=== PATIENT | male | born 1975 | race Caucasian/White ===

== ENCOUNTER 2016-07-22 07:04 | Emergency (ER) | payer BC ==
[~2016-07-22] VITALS: Ht 177.8 cm; Wt 78.8 kg
[2016-07-22 07:10] VITALS: TEMP 36.3; Ht 177.8 cm; Wt 78.8 kg
[2016-07-22] MEDS ORDERED: ONDANSETRON INJ 2 MG/ML 2 ML VIAL IV STA ×2 (07:37→09:54)
[2016-07-22] MEDS ORDERED: MoRPHine SULFATE 4 MG/ML 1 ML CARP\\VIAL IV ONE ×2 (07:45→10:00)
[2016-07-22] MEDS ORDERED: PANTOprazole INJ 40 MG in SYRINGE 0 ML IV ONE (07:45)
[2016-07-22] MEDS ORDERED: GI COCKTAIL PO ONE (07:45)
[2016-07-22] MEDS ORDERED: SODIUM CHLORIDE 0.9% 1000ML 1,000 ML IV ONE ×2 (07:45→10:00)
[2016-07-22 07:48] LABS: BASO % 0.3 %; BASO ABS # 0.02 K/uL (0-0.2); COMPLETE YES; EOS % 1.4 %; IG% 0.5 %; LYMPH % 24.2 %; LYMPH ABS # 1.52 K/uL (1.2-3.4); MEAN CELL VOLUME 90.1 fL (80-100); MEAN CORPUSCULAR HEMOGLOBIN 33.2 pg (25-34); MEAN CORPUSCULAR HGB CONC 36.9 g/dl (32-36); MEAN PLATELET VOLUME 9.9 fL (7.4-10.4); MONO % 7.2 %; NEUT % 66.4 %; PLATELET COUNT 244 K/uL (130-400); RED BLOOD COUNT 5.33 M/uL (4.7-6.1); WHITE BLOOD COUNT 6.29 K/uL (4.8-10.8)
[2016-07-22 08:02] LABS: BUN/CREATININE RATIO 15.6 (10-20); CALCIUM 9.2 mg/dl (8.5-10.1); CREATININE 1.1 mg/dl (0.60-1.40); POTASSIUM 3.5 mmol/L (3.5-5.1)
[2016-07-22] MEDS ORDERED: ALUMINUM/MAGNESIUM SUSP 30 ML UDC ONE (08:02)
[2016-07-22] MEDS ORDERED: LIDOCAINE HCL 2% VISC SOLN 20 ML UDC ONE (08:03)
[2016-07-22 08:05] LABS: ALB/GLOB RATIO 1.3 (0.9-2)
--- NOTE | 2016-07-22 09:00 | DIAGNOSTIC IMAGING REPORT ---
ABDOMEN 2VIEW W/PA CHEST RTN CLINICAL HISTORY: Epigastric abd pain pain COMPARISON STUDY: No previous studies for comparison. FINDINGS: The soft tissues, psoas shadows, renal outlines and intestinal gas pattern appear normal. There is no evidence for bowel obstruction. There is no evidence for free intraperitoneal air. No abnormal abdominal calcifications are seen. A frontal view of the chest was performed and is unremarkable. IMPRESSION: Normal study. Electronically signed by: Chet May M.D. 07/22/2016 8:58 AM Dictated Date/Time: 07/22/2016 8:57 AM
--- NOTE | 2016-07-22 09:06 | DIAGNOSTIC IMAGING REPORT ---
Right upper quadrant ultrasound GALLBLADDER-ABD LIMITED CLINICAL HISTORY: Epigastric abd pain pain. Nausea. TECHNIQUE: Ultrasound COMPARISON STUDY: None FINDINGS: 2. Small gallstones. No evidence for gallbladder wall thickening. Common bile duct 3 mm. Liver is uniform. 2. Small left hepatic lobe cyst measuring 1.2 cm. Pancreas and right kidney are unremarkable. IMPRESSION: 1. Several small gallstones. 2. Normal caliber bile ducts. 3. 2. Small left hepatic lobe cyst. Electronically signed by: Chet May M.D. 07/22/2016 9:04 AM Dictated Date/Time: 07/22/2016 9:02 AM
--- NOTE | 2016-07-22 10:55 | DIAGNOSTIC IMAGING REPORT ---
ABDOMEN AND PELVIS CT WITHOUT CONTRAST CT DOSE: 329.35 mGy.cm HISTORY: Pain Epigastric/Left sided abd pain TECHNIQUE: Multiaxial CT images of the abdomen and pelvis were performed without contrast. COMPARISON STUDY: None. FINDINGS: The lung bases are clear. The unenhanced liver, spleen, gallbladder, pancreas, kidneys, and adrenal glands are within normal limits. No bowel wall thickening or obstruction. The pelvic organs are unremarkable. No suspicious lytic or blastic osseous lesions. IMPRESSION: No significant abnormality identified within the abdomen or pelvis. Electronically signed by: Chet May M.D. 07/22/2016 10:53 AM Dictated Date/Time: 07/22/2016 10:49 AM
[2016-07-22] MEDS ORDERED: ONDA4TAB10 SL (11:15)
[2016-07-22] MEDS ORDERED: HYDR-5688 PO (11:15)
[2016-07-22 11:40] VITALS: BP 101/53; PULSE 69; O2SAT 98
--- NOTE | 2016-07-22 16:15 | EMERGENCY ROOM VISIT NOTE ---
History First contact with patient: 07:29 Chief Complaint: ABDOMINAL PAIN Stated Complaint: UPPER ABDOMINAL PAIN - CENTER Nursing Triage Summary: Pt presents with epigastric pain since 0550, n/v/d. States nausea now resolved. Emesis x 1. History of Present Illness The patient is a 40 year old male who presents to the Emergency Room with complaints of epigastric abdominal pain for the past 90 minutes. The patient states that he woke up with his discomfort and had one episode of vomiting. He states the vomiting did resolve his nausea. His discomfort is directly underneath his ribs and does not radiate. The patient states that he has had intermittent episodes of this in the past. He did have some diarrhea earlier, but this is also resolved. No recent travel history or antibiotic use. The patient considers himself usually healthy and rates his discomfort a 7/10. Review of Systems More than 10 systems were reviewed and otherwise negative with the exception of history of present illness. Past Medical/Surgical History No chronic medical disease Family History No pertinent family history Social History Smoking Status: Never Smoker Housing Status: lives with family Current/Historical Medications Scheduled Ondasetron Odt (Zofran Odt), 4 MG SL Q6H Scheduled PRN Hydrocodone/Acetaminophen 5MG/325MG ([place] 5MG/325MG), 1-2 TABLET PO Q6 PRN for Pain Allergies Coded Allergies: No Known Allergies (Unverified , 07/22/16) Physical Exam Vital Signs Date Time Temp Pulse Resp B/P Pulse Ox O2 Delivery O2 Flow Rate FiO2 07/22/16 11:40 69 18 101/53 98 07/22/16 11:13 56 121/62 97 07/22/16 09:20 59 16 136/77 95 Room Air 07/22/16 08:22 58 16 111/68 98 Room Air 07/22/16 08:19 67 07/22/16 07:10 36.3 69 20 142/88 100 Room Air Pain Rating (0-10): 3.0 Physical Exam VITALS: Vitals are noted on the nurse's note and reviewed by myself. Vital signs stable. GENERAL: Well-developed, well-nourished, white male, who is in no acute distress and resting comfortably. Patient is cooperative with the examination. HEAD: Normocephalic atraumatic. HEART: Regular rate and rhythm without murmurs gallops or rubs. LUNGS: Clear to auscultation bilaterally without wheezes, rales or rhonchi. No retractions or accessory muscle use. ABDOMEN: Positive normal bowel sounds x 4. Soft with positive epigastric tenderness on palpation. No rebound or guarding. No lower abdominal tenderness. No CVA tenderness. MUSCULOSKELETAL: No muscle atrophy, erythema, or edema noted. Full range of motion without joint tenderness in all extremities. Medical Decision & Procedures ER Provider Diagnostic Interpretation: ABDOMEN 2VIEW W/PA CHEST RTN CLINICAL HISTORY: Epigastric abd pain pain COMPARISON STUDY: No previous studies for comparison. FINDINGS: The soft tissues, psoas shadows, renal outlines and intestinal gas pattern appear normal. There is no evidence for bowel obstruction. There is no evidence for free intraperitoneal air. No abnormal abdominal calcifications are seen. A frontal view of the chest was performed and is unremarkable. IMPRESSION: Normal study. Right upper quadrant ultrasound GALLBLADDER-ABD LIMITED CLINICAL HISTORY: Epigastric abd pain pain. Nausea. TECHNIQUE: Ultrasound COMPARISON STUDY: None FINDINGS: 2. Small gallstones. No evidence for gallbladder wall thickening. Common bile duct 3 mm. Liver is uniform. 2. Small left hepatic lobe cyst measuring 1.2 cm. Pancreas and right kidney are unremarkable. IMPRESSION: 1. Several small gallstones. 2. Normal caliber bile ducts. 3. 2. Small left hepatic lobe cyst. ABDOMEN AND PELVIS CT WITHOUT CONTRAST CT DOSE: 329.35 mGy.cm HISTORY: Pain Epigastric/Left sided abd pain TECHNIQUE: Multiaxial CT images of the abdomen and pelvis were performed without contrast. COMPARISON STUDY: None. FINDINGS: The lung bases are clear. The unenhanced liver, spleen, gallbladder, pancreas, kidneys, and adrenal glands are within normal limits. No bowel wall thickening or obstruction. The pelvic organs are unremarkable. No suspicious lytic or blastic osseous lesions. IMPRESSION: No significant abnormality identified within the abdomen or pelvis. Laboratory Results 07/22/16 06:20 Red Blood Count 5.33, Mean Corpuscular Volume 90.1, Mean Corpuscular Hemoglobin 33.2, Mean Corpuscular Hemoglobin Concent 36.9, Mean Platelet Volume 9.9, Neutrophils (%) (Auto) 66.4, Lymphocytes (%) (Auto) 24.2, Monocytes (%) (Auto) 7.2, Eosinophils (%) (Auto) 1.4, Basophils (%) (Auto) 0.3, Neutrophils # (Auto) 4.18, Lymphocytes # (Auto) 1.52, Monocytes # (Auto) 0.45, Eosinophils # (Auto) 0.09, Basophils # (Auto) 0.02 07/22/16 06:20 Test 07/22/16 06:20 07/22/16 08:26 White Blood Count 6.29 K/uL (4.8-10.8) Red Blood Count 5.33 M/uL (4.7-6.1) Hemoglobin 17.7 g/dL (14.0-18.0) Hematocrit 48.0 % (42-52) Mean Corpuscular Volume 90.1 fL (80-100) Mean Corpuscular Hemoglobin 33.2 pg (25-34) Mean Corpuscular Hemoglobin Concent 36.9 g/dl (32-36) Platelet Count 244 K/uL (130-400) Mean Platelet Volume 9.9 fL (7.4-10.4) Neutrophils (%) (Auto) 66.4 % Lymphocytes (%) (Auto) 24.2 % Monocytes (%) (Auto) 7.2 % Eosinophils (%) (Auto) 1.4 % Basophils (%) (Auto) 0.3 % Neutrophils # (Auto) 4.18 K/uL (1.4-6.5) Lymphocytes # (Auto) 1.52 K/uL (1.2-3.4) Monocytes # (Auto) 0.45 K/uL (0.11-0.59) Eosinophils # (Auto) 0.09 K/uL (0-0.5) Basophils # (Auto) 0.02 K/uL (0-0.2) RDW Standard Deviation 42.1 fL (36.4-46.3) RDW Coefficient of Variation 12.8 % (11.5-14.5) Immature Granulocyte % (Auto) 0.5 % Immature Granulocyte # (Auto) 0.03 K/uL (0.00-0.02) Anion Gap 7.0 mmol/L (3-11) Est Creatinine Clear Calc Drug Dose 90.3 ml/min Estimated GFR () 95.5 Estimated GFR (Non- 82.4 BUN/Creatinine Ratio 15.6 (10-20) Calcium Level 9.2 mg/dl (8.5-10.1) Total Bilirubin 1.5 mg/dl (0.2-1) Aspartate Amino Transf (AST/SGOT) 13 U/L (15-37) Alanine Aminotransferase (ALT/SGPT) 30 U/L (12-78) Alkaline Phosphatase 65 U/L (45-117) Total Protein 7.6 gm/dl (6.4-8.2) Albumin 4.3 gm/dl (3.4-5.0) Globulin 3.3 gm/dl (2.5-4.0) Albumin/Globulin Ratio 1.3 (0.9-2) Lipase 158 U/L (73-393) Bedside Troponin I 0.000 ng/ml (0-0.045) Medications Administered Medications (Trade) Dose Ordered Sig/Tonya Route Start Time Stop Time Status Last Admin Dose Admin Morphine Sulfate 4 mg 4 mg NOW ONCE IV 07/22/16 07:45 07/22/16 07:46 DC 07/22/16 08:03 4 MG Sodium Chloride (Nss 1000ml) 1,000 ml @ 999 mls/hr Q1H1M ONCE IV 07/22/16 07:45 07/22/16 08:45 DC 07/22/16 08:08 999 MLS/HR Ondansetron HCl (Zofran Inj) 4 mg NOW STAT IV 07/22/16 07:37 07/22/16 07:39 DC 07/22/16 08:02 4 MG Miscellaneous Medication 24 ml 24 ml NOW ONCE PO 07/22/16 07:45 07/22/16 07:46 DC 07/22/16 08:24 24 ML Pantoprazole Sodium/Syringe (Protonix Inj/ Syringe) 10 ml @ 5 mls/min NOW ONCE IV 07/22/16 07:45 07/22/16 07:46 DC 07/22/16 08:07 5 MLS/MIN Al Hydroxide/Mg Hydroxide (Maalox Susp) 30 ml STK-MED ONCE .ROUTE 07/22/16 08:02 07/22/16 08:03 DC 07/22/16 08:07 30 ML Lidocaine HCl (Viscous Lidocaine 2% Soln) 20 ml STK-MED ONCE .ROUTE 07/22/16 08:03 07/22/16 08:04 DC 07/22/16 08:08 20 ML Morphine Sulfate (MoRPHine SULFATE INJ) 4 mg NOW ONCE IV 07/22/16 10:00 07/22/16 10:01 DC 07/22/16 10:06 4 MG Ondansetron HCl 4 mg 4 mg NOW STAT IV 07/22/16 09:54 07/22/16 09:56 DC 07/22/16 10:06 4 MG Sodium Chloride (Nss 1000ml) 1,000 ml @ 999 mls/hr Q1H1M ONCE IV 07/22/16 10:00 07/22/16 11:00 DC 07/22/16 10:07 999 MLS/HR ED Course Physical exam and history were performed. Nursing notes and EMR were reviewed. Patient appears to have epigastric abdominal pain with nausea and vomiting this morning. On examination he does have some palpable epigastric tenderness. IV access was established and labs were obtained. The patient was hydrated through his IV and given IV morphine and IV Zofran. He was also given a GI cocktail and IV Protonix. X-ray and ultrasound were performed. The patient's blood work is as above and was reviewed. He does not have significantly elevated white blood cell count or gross anemia, bandemia, or significant electrolyte imbalance. Lipase and transaminases are nondiagnostic. X-ray does not show acute finding such as free air or obstructive process. Ultrasound does show some gallstones but no acute cholecystitis. On reevaluation the patient states that his abdominal pain in the epigastrium significant improvement, but now he has some left-sided abdominal pain which was different from before. The patient was reexamined and his abdomen remained soft without significant findings in the left side of his abdomen. I discussed options of care with the patient, and ultimately we did elect to perform a CT scan. The CT scan does not show evidence of acute intra-abdominal process. Overall the patient does appear stable for discharge home. He does not appear to have acute surgical abdominal process. His symptoms certainly could be gastritis or foodborne illness. He may also have GERD. The patient will be given a short course of Vicodin as well as a short amount of Zofran. I recommended that he follow with his PCP in the next few days for recheck. He was certainly invited back to the ER with any new, worsening, or concerning symptoms. The patient was pleased with this plan and voiced understanding. He rated his discomfort a 3/10 at the time of departure. The chart was completed utilizing Dragon Speech Voice Recognition Software. Grammatical errors, random word insertions, pronoun errors, and incomplete sentences are an occasional consequence of this system due to software limitations, ambient noise, and hardware issues. Any formal questions or concerns about the content, text, or information contained within the body of this dictation should be directly addressed to the provider for clarification. . Medical Decision Differential diagnosis: Etiologies such as appendicitis, diverticulitis, PUD, biliary pathology, UTI, pancreatitis, obstruction, mesenteric ischemia, aortic pathology, infections, inflammatory bowel disease, renal colic, as well as others were entertained. Impression Primary Impression: Epigastric abdominal pain Departure Information Dispostion Home / Self-Care Condition GOOD Prescriptions Ondasetron Odt (ZOFRAN ODT) 4 Mg Tab 4 MG SL Q6H for Nausea, #12 TAB Prov: Sandip Noriega PA-C 07/22/16 Hydrocodone/Acetaminophen 5MG/325MG ([place] 5MG/325MG) Tab 1-2 TABLET PO Q6 Y for Pain, #15 TAB For Initial Treatment Prov: Sandip Noriega PA-C 07/22/16 Forms Call Back Authorization, HOME CARE DOCUMENTATION FORM, Work Instructions, Return To Work: 2 days IMPORTANT VISIT INFORMATION Patient Instructions My [facility] Additional Instructions You were seen and evaluated today on an emergency basis only. This is not a substitute for, or an effort to provide, complete comprehensive medical care. It is not possible to recognize and treat all injuries or illnesses in a single emergency department visit. For this reason it is recommended that you followup with your primary care physician in the next 2-3 days for recheck of your condition. [place] (hydrocodone/acetaminophen) 5/325 mg ONE or TWO every 6 hours as needed for worsening breakthrough pain. Do not drink or drive on [place]. This medication will likely make you tired. Do not take [place] and Tylenol at the same time as both contain acetaminophen. [place] may cause constipation. You may wish to take an [id number] stool softener like Colace if this occurs. Zofran 1 tablet every 6 hrs as needed for nausea. You are welcome to return to the emergency department anytime with new, worsening, or concerning symptoms. Work Instructions Return To Work: 2 days
== END 2016-07-22 11:43 | disposition home or self-care (01) ==
LOC: C.EDB 07:06 → C.EDA 11:43
DX: R10.13 Epigastric pain (principal); R11.2 Nausea with vomiting, unspecified

== ENCOUNTER → 2016-10-30 | Outpatient (CLI) | payer OTHER, BC ==
[~2016-10-30] MED LIST: HYDR-5688 PO; ONDA4TAB10 SL
--- NOTE | 2016-10-30 08:44 | DIAGNOSTIC IMAGING REPORT ---
RIGHT HAND MIN 3 VIEWS ROUTINE CLINICAL HISTORY: 40 years-old Male presenting with RIGHT HAND 5TH DIGIT Right. TECHNIQUE: Frontal, oblique, and lateral views of the right hand were obtained. COMPARISON: Correlation made to plain radiographs of the right wrist from 12/27/2013. FINDINGS: No acute fracture or malalignment. Apparent radiolucency in the distal scaphoid may represent cystic change related to degeneration or be artifactual. Soft tissues grossly normal. Previously noted well-corticated ossicle at the dorsal base of the fifth metacarpal unchanged in appearance. No significant degenerative change. IMPRESSION: No acute osseous injury of the right hand. Specifically, the fifth finger is normal appearing. Electronically signed by: Waqas Gutierrez M.D. 10/30/2016 8:43 AM Dictated Date/Time: 10/30/2016 8:39 AM
== END | disposition home or self-care (01) ==
LOC: C.RAD1850 08:21
PROVIDERS: ATTEND Nurse Practitioner Family
DX: S60.051A Contusion of right little finger without damage to nail, initial encounter (principal); W23.0XXA Caught, crushed, jammed, or pinched between moving objects, initial encounter; Y99.0 Civilian activity done for income or pay

== ENCOUNTER → 2016-11-06 | Outpatient (CLI) | payer OTHER, BC | END | disposition home or self-care (01) | LOC: C.PATH 17:08 | PROVIDERS: ATTEND Urology | DX: Z30.2 Encounter for sterilization (principal) ==

== ENCOUNTER 2017-04-23 18:16 | Inpatient (IN) | payer BC, OTHER ==
[~2017-04-23] VITALS: Ht 177.8 cm; Wt 83.0 kg
[2017-04-23] MEDS ORDERED: SIME80CH PO (19:30)
[2017-04-23] MEDS ORDERED: BISM262T3 PO (19:30)
[2017-04-23] MEDS ORDERED: ONDANSETRON INJ 2 MG/ML 2 ML VIAL IV STA (19:38)
[2017-04-23] MEDS ORDERED: SODIUM CHLORIDE 0.9% 1000ML 1,000 ML IV STA (19:39)
[2017-04-23 19:41] LABS: BASO % 0.2 %; BASO ABS # 0.02 K/uL (0-0.2); EOS % 0.7 %; EOS ABS # 0.08 K/uL (0-0.5); HEMATOCRIT 45.9 % (42-52); IG# 0.09 K/uL (0.00-0.02); LYMPH ABS # 1.11 K/uL (1.2-3.4); MEAN CELL VOLUME 91.8 fL (80-100); MEAN PLATELET VOLUME 10.1 fL (7.4-10.4); MONO % 5.7 %; MONO ABS # 0.63 K/uL (0.11-0.59); NEUT % 82.6 %; NEUT ABS # 9.17 K/uL (1.4-6.5); PLATELET COUNT 213 K/uL (130-400); RED CELL DISTRIBUTION WIDTH CV 12.4 % (11.5-14.5); RED CELL DISTRIBUTION WIDTH SD 41.6 fL (36.4-46.3)
[2017-04-23] MEDS: HYDROmorphone INJ 1 MG/ML SYR IV PRN ×2 (19:47→20:10)
[2017-04-23 20:01] LABS: ALBUMIN 4.3 gm/dl (3.4-5.0); CALCIUM 8.6 mg/dl (8.5-10.1); CREATININE 1.01 mg/dl (0.60-1.40); POTASSIUM 3.3 mmol/L (3.5-5.1)
[2017-04-23 20:04] LABS: TOTAL PROTEIN 7.4 gm/dl (6.4-8.2)
--- NOTE | 2017-04-23 21:14 | DIAGNOSTIC IMAGING REPORT ---
ULTRASOUND RIGHT UPPER QUADRANT ABDOMEN CLINICAL HISTORY: Upper abdominal pain. COMPARISON STUDY: Abdominal CT dated 07/22/2016. TECHNIQUE: Real-time, grayscale, and color flow sonography of the right upper quadrant of the abdomen was performed. Images are reviewed in the transverse and longitudinal planes. FINDINGS: Liver: The liver is normal in size and echotexture. There is no intrahepatic biliary ductal dilatation. The main portal vein is patent. An 8 mm echogenic lesion in the left hepatic lobe is typical in appearance for a small hemangioma. A subcentimeter cyst is also seen in the left lobe. Gallbladder: The gallbladder is distended. There are shadowing gallstones and biliary sludge. The gallbladder wall is thickened measuring up to 5 mm. No pericholecystic fluid is seen. A sonographic Diaz's sign is equivocal as the patient received analgesia. A 5 mm gallbladder polyp is incidentally noted fundus. The common bile duct measures up to 0.3 cm in diameter. Pancreas: Visualized portions of the pancreatic head and body are normal in appearance. The splenic vein is patent. Right kidney: Survey images of the right kidney demonstrate normal size and echotexture. There is no hydronephrosis. Ascites: None. IMPRESSION: 1. Cholelithiasis and biliary sludge. The gallbladder is distended and thick-walled. Findings are concerning for acute cholecystitis. Surgical consultation is advised. If clinically warranted a nuclear hepatobiliary scan could be considered for further assessment. 2. There is no intra or extrahepatic biliary ductal dilatation. 3. Additional findings as above. Electronically signed by: Raudel Malone M.D. 04/23/2017 9:13 PM Dictated Date/Time: 04/23/2017 9:10 PM
[2017-04-23] MEDS ORDERED: CEFOXITIN 2000MG/60 ML D5W IV STA (21:29)
--- NOTE | 2017-04-23 21:40 | DIAGNOSTIC IMAGING REPORT ---
SINGLE VIEW CHEST CLINICAL HISTORY: Right upper quadrant abdominal pain. FINDINGS: An AP, portable, upright chest radiograph is compared to study dated 07/22/2016. The examination is degraded by portable technique and patient rotation. The cardiomediastinal silhouette is unremarkable. The lungs and pleural spaces are clear. No pneumothorax is seen. The bony thorax is grossly intact. IMPRESSION: No active disease in the chest. Electronically signed by: Raudel Malone M.D. 04/23/2017 9:39 PM Dictated Date/Time: 04/23/2017 9:39 PM
--- NOTE | 2017-04-23 22:16 | History and Physical ---
History & Physical Date & Time of Service: Apr 23, 2017 at 22:10 Chief Complaint: Severte Upper Stomach Pain Primary Care Physician: Seferino Rowell MD History of Present Illness Source: patient The patient is a 41 year old male who presents to the Emergency Room with complaints of worsening upper abdominal pain that began this afternoon. The pain radiates to his back and he has been nauseated. He had a similar episode in July of 2016 when he was diagnosed with epigastric abdominal pain. The patient denies LOC, headache, fevers, chills, diaphoresis, visual changes, neck pain, chest pain, breathing difficulties, vomiting, melena, hematochezia, urinary symptoms, numbness, weakness, lymphadenopathy, rash, or other complaints. An ultrasound shows stones and signs of acute cholecystitis. Past Medical/Surgical History PMHx -negative PSHx -negative Family History Cancer Cancer Social History Smoking Status: Never Smoker Alcohol Use: socially Drug Use: none Marital Status: Housing status: lives with family Occupational Status: employed Allergies Coded Allergies: Naproxen (Verified Allergy, Unknown, Head noise and passed out, 04/23/17) Home Medications Scheduled PRN Bismuth Subsalicylate (Pepto Bismol Chew Tab), 262 MG PO UD PRN for GI Upset Simethicone (Gas-X), 80 MG PO UD PRN for Gas or Constipation Review of Systems Constitutional: No fever, No chills, No sweats Eyes: No worsening of vision, No redness ENT: No problem reported Respiratory: No cough, No sputum, No wheezing, No shortness of breath, No dyspnea on exertion Cardiovascular: No chest pain, No edema, No palpitations Abdomen: + pain, + nausea, No vomiting, No diarrhea, No constipation, No GI bleeding Musculoskeletal: No joint pain, No muscle pain, No swelling Genitourinary - Male: No hematuria, No dysuria Neurologic: No memory loss, No paralysis, No numbness/tingling, No vertigo Psychiatric: No depression symptoms, No anxiety Endocrine: No fatigue, No excessive thirst, No excessive urination Hematologic / Lymphatic: No abnormal bleeding/bruising, No clotting problems, No swollen lymph nodes, No night sweats Integumentary: No rash, No new/changing skin lesions, No bleeding Allergic / Immunologic: No environmental allergies, No seasonal allergies Physical Exam Vital Signs Date Time Temp Pulse Resp B/P (MAP) Pulse Ox O2 Delivery O2 Flow Rate FiO2 04/23/17 21:25 71 20 116/73 96 Room Air 04/23/17 20:10 98 20 133/95 98 Room Air 04/23/17 18:18 36.3 68 20 141/89 99 General Appearance: WD/WN, no apparent distress Head: normocephalic, atraumatic Eyes: normal inspection, PERRL, EOMI, sclerae normal ENT: normal ENT inspection Neck: supple, no adenopathy, trachea midline Respiratory/Chest: chest non-tender, lungs clear Cardiovascular: regular rate, rhythm, no edema, no gallop, no murmur Abdomen/GI: normal bowel sounds, soft, no pulsatile mass, + tenderness Genitourinary - Male: normal male genitalia Back: no CVA tenderness, normal range of motion Extremities/Musculoskelatal: normal inspection, no calf tenderness, non-tender Neurologic/Psych: no motor/sensory deficits, alert, normal mood/affect, oriented x 3 Skin: normal color, warm/dry, no rash Lymphatic: no adenopathy Diagnostics Laboratory Results Results Past 24 Hours Test 04/23/17 19:08 04/23/17 20:00 Range/Units White Blood Count 11.10 4.8-10.8 K/uL Red Blood Count 5.00 4.7-6.1 M/uL Hemoglobin 17.0 14.0-18.0 g/dL Hematocrit 45.9 42-52 % Mean Corpuscular Volume 91.8 80-100 fL Mean Corpuscular Hemoglobin 34.0 25-34 pg Mean Corpuscular Hemoglobin Concent 37.0 32-36 g/dl Platelet Count 213 130-400 K/uL Mean Platelet Volume 10.1 7.4-10.4 fL Neutrophils (%) (Auto) 82.6 % Lymphocytes (%) (Auto) 10.0 % Monocytes (%) (Auto) 5.7 % Eosinophils (%) (Auto) 0.7 % Basophils (%) (Auto) 0.2 % Neutrophils # (Auto) 9.17 1.4-6.5 K/uL Lymphocytes # (Auto) 1.11 1.2-3.4 K/uL Monocytes # (Auto) 0.63 0.11-0.59 K/uL Eosinophils # (Auto) 0.08 0-0.5 K/uL Basophils # (Auto) 0.02 0-0.2 K/uL RDW Standard Deviation 41.6 36.4-46.3 fL RDW Coefficient of Variation 12.4 11.5-14.5 % Immature Granulocyte % (Auto) 0.8 % Immature Granulocyte # (Auto) 0.09 0.00-0.02 K/uL Sodium Level 140 136-145 mmol/L Potassium Level 3.3 3.5-5.1 mmol/L Chloride Level 106 98-107 mmol/L Carbon Dioxide Level 28 21-32 mmol/L Anion Gap 6.0 3-11 mmol/L Blood Urea Nitrogen 18 7-18 mg/dl Creatinine 1.01 0.60-1.40 mg/dl Est Creatinine Clear Calc Drug Dose 97.4 ml/min Estimated GFR () 105.1 Estimated GFR (Non- 90.7 BUN/Creatinine Ratio 18.3 10-20 Random Glucose 93 70-99 mg/dl Calcium Level 8.6 8.5-10.1 mg/dl Total Bilirubin 1.3 0.2-1 mg/dl Direct Bilirubin 0.2 0-0.2 mg/dl Aspartate Amino Transf (AST/SGOT) 19 15-37 U/L Alanine Aminotransferase (ALT/SGPT) 34 12-78 U/L Alkaline Phosphatase 64 45-117 U/L Total Protein 7.4 6.4-8.2 gm/dl Albumin 4.3 3.4-5.0 gm/dl Lipase 150 73-393 U/L Urine Color YELLOW Urine Appearance CLOUDY CLEAR Urine pH 7.5 4.5-7.5 Urine Specific Erin 1.023 1.000-1.030 Urine Protein NEG NEG Urine Glucose (UA) NEG NEG Urine Ketones TRACE NEG Urine Occult Blood NEG NEG Urine Nitrite NEG NEG Urine Bilirubin NEG NEG Urine Urobilinogen NEG NEG Urine Leukocyte Esterase NEG NEG Urine WBC (Auto) 0 0-5 /hpf Urine RBC (Auto) 0-4 0-4 /hpf Urine Hyaline Casts (Auto) 0 0-5 /lpf Urine Epithelial Cells (Auto) 0-5 0-5 /lpf Urine Bacteria (Auto) NEG NEG Diagnostic Radiology ULTRASOUND RIGHT UPPER QUADRANT ABDOMEN CLINICAL HISTORY: Upper abdominal pain. COMPARISON STUDY: Abdominal CT dated 07/22/2016. TECHNIQUE: Real-time, grayscale, and color flow sonography of the right upper quadrant of the abdomen was performed. Images are reviewed in the transverse and longitudinal planes. FINDINGS: Liver: The liver is normal in size and echotexture. There is no intrahepatic biliary ductal dilatation. The main portal vein is patent. An 8 mm echogenic lesion in the left hepatic lobe is typical in appearance for a small hemangioma. A subcentimeter cyst is also seen in the left lobe. Gallbladder: The gallbladder is distended. There are shadowing gallstones and biliary sludge. The gallbladder wall is thickened measuring up to 5 mm. No pericholecystic fluid is seen. A sonographic Diaz's sign is equivocal as the patient received analgesia. A 5 mm gallbladder polyp is incidentally noted fundus. The common bile duct measures up to 0.3 cm in diameter. Pancreas: Visualized portions of the pancreatic head and body are normal in appearance. The splenic vein is patent. Right kidney: Survey images of the right kidney demonstrate normal size and echotexture. There is no hydronephrosis. Ascites: None. IMPRESSION: 1. Cholelithiasis and biliary sludge. The gallbladder is distended and thick-walled. Findings are concerning for acute cholecystitis. Surgical consultation is advised. If clinically warranted a nuclear hepatobiliary scan could be considered for further assessment. 2. There is no intra or extrahepatic biliary ductal dilatation. 3. Additional findings as above. Impression Assessment and Plan Acute cholecystitis -IVF IV abx -to OR tomorrow for lap nini ASA Classification: ASA Class II Level of Care Med/Surg Advanced Directives Existing Advance Directive: No Existing Living Will: No Existing Power of Deposition Operator: No Existing Health Care Proxy: No Resuscitation Status FULL RESUSCITATION VTE Prophylaxis VTE Risk Assessment Done? Y/N: Yes Risk Level: Low Given or contraindicated: SCD's Social Service Consult None Apply
[2017-04-23] MEDS ORDERED: ALUMINUM/MAGNESIUM/SIMETH (MAALOX MAX) 30 ML UDC PO PRN (22:30)
[2017-04-23] MEDS ORDERED: ACETAMINOPHEN 325 MG TAB PO PRN (22:30)
[2017-04-23] MEDS ORDERED: ONDANSETRON INJ 2 MG/ML 2 ML VIAL IV PRN (22:30)
[2017-04-23] MEDS ORDERED: MoRPHine SULFATE 4 MG/ML 1 ML CARP\\VIAL IV PRN (22:30)
--- NOTE | 2017-04-23 23:11 | EMERGENCY ROOM VISIT NOTE ---
History Report prepared by Gian: Que Barber Under the Supervision of: Dr. Jonathan Ramirez M.D. First contact with patient: 19:04 Chief Complaint: ABDOMINAL PAIN Stated Complaint: SEVERTE UPPER STOMACH PAIN Nursing Triage Summary: c/o upper abd pain and back pain with nausea that started at 230pm today History of Present Illness The patient is a 41 year old male who presents to the Emergency Room with complaints of worsening upper abdominal pain that began at 1430, 5 hours prior to arrival. The patient states that his pain significantly worsened at 1600. He describes his current pain as "severe." The patient notes that he also has pain across the middle of his back, and that he is nauseous. He believes that his nausea is secondary to the pain. He had a similar episode in July of 2016 when he was diagnosed with epigastric abdominal pain. The patient denies LOC, headache, fevers, chills, diaphoresis, visual changes, neck pain, chest pain, breathing difficulties, vomiting, melena, hematochezia, urinary symptoms, numbness, weakness, lymphadenopathy, rash, or other complaints. 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 A total of ten systems were reviewed and were otherwise negative. Past Medical & Surgical Medical Problems: (1) Acute cholecystitis Patient denies any medical/surgical history. Family History Cancer Social History Smoking Status: Never Smoker Marital Status: Housing Status: lives with family Current/Historical Medications Scheduled PRN Bismuth Subsalicylate (Pepto Bismol Chew Tab), 262 MG PO UD PRN for GI Upset Simethicone (Gas-X), 80 MG PO UD PRN for Gas or Constipation Allergies Coded Allergies: Naproxen (Verified Allergy, Unknown, Head noise and passed out, 04/23/17) Physical Exam Vital Signs Date Time Temp Pulse Resp B/P (MAP) Pulse Ox O2 Delivery O2 Flow Rate FiO2 04/23/17 22:53 72 20 135/72 94 Room Air 04/23/17 21:25 71 20 116/73 96 Room Air 04/23/17 20:10 98 20 133/95 98 Room Air 04/23/17 18:18 36.3 68 20 141/89 99 Physical Exam GENERAL: Awake, alert, very uncomfortable appearing, moderate distress. HENT: Normocephalic, atraumatic. Oropharynx unremarkable. EYES: Normal conjunctiva. Sclera non-icteric. NECK: Supple. No nuchal rigidity. FROM. No JVD. RESPIRATORY: Clear to auscultation. CARDIAC: Regular rate, normal rhythm. Extremities warm and well perfused. Pulses equal. ABDOMEN: Soft, non-distended. Severe RUQ tenderness to palpation. No rebound or guarding. No masses. RECTAL: Deferred. MUSCULOSKELETAL: Chest examination reveals no tenderness. The back is symmetrical on inspection without obvious abnormality. There is CVA tenderness to palpation. No joint edema. LOWER EXTREMITIES: Calves are equal size bilaterally and non-tender. No edema. No discoloration. NEURO: Normal sensorium. No sensory or motor deficits noted. SKIN: No rash or jaundice noted. Medical Decision & Procedures ER Provider Diagnostic Interpretation: Imaging studies: Chest x-ray. Findings: A chest x-ray was performed and revealed no pneumothorax, effusion, infiltrate, pulmonary edema, free air under the diaphragm, or wide mediastinum. Impression: No acute disease. Gallbladder ultrasound revealed thickening, sludge, stones, and this was concerning for acute cholecystitis. Laboratory Results 04/23/17 19:08 Red Blood Count 5.00, Mean Corpuscular Volume 91.8, Mean Corpuscular Hemoglobin 34.0, Mean Corpuscular Hemoglobin Concent 37.0, Mean Platelet Volume 10.1, Neutrophils (%) (Auto) 82.6, Lymphocytes (%) (Auto) 10.0, Monocytes (%) (Auto) 5.7, Eosinophils (%) (Auto) 0.7, Basophils (%) (Auto) 0.2, Neutrophils # (Auto) 9.17, Lymphocytes # (Auto) 1.11, Monocytes # (Auto) 0.63, Eosinophils # (Auto) 0.08, Basophils # (Auto) 0.02 04/23/17 19:08 Test 04/23/17 19:08 04/23/17 20:00 White Blood Count 11.10 K/uL (4.8-10.8) Red Blood Count 5.00 M/uL (4.7-6.1) Hemoglobin 17.0 g/dL (14.0-18.0) Hematocrit 45.9 % (42-52) Mean Corpuscular Volume 91.8 fL (80-100) Mean Corpuscular Hemoglobin 34.0 pg (25-34) Mean Corpuscular Hemoglobin Concent 37.0 g/dl (32-36) Platelet Count 213 K/uL (130-400) Mean Platelet Volume 10.1 fL (7.4-10.4) Neutrophils (%) (Auto) 82.6 % Lymphocytes (%) (Auto) 10.0 % Monocytes (%) (Auto) 5.7 % Eosinophils (%) (Auto) 0.7 % Basophils (%) (Auto) 0.2 % Neutrophils # (Auto) 9.17 K/uL (1.4-6.5) Lymphocytes # (Auto) 1.11 K/uL (1.2-3.4) Monocytes # (Auto) 0.63 K/uL (0.11-0.59) Eosinophils # (Auto) 0.08 K/uL (0-0.5) Basophils # (Auto) 0.02 K/uL (0-0.2) RDW Standard Deviation 41.6 fL (36.4-46.3) RDW Coefficient of Variation 12.4 % (11.5-14.5) Immature Granulocyte % (Auto) 0.8 % Immature Granulocyte # (Auto) 0.09 K/uL (0.00-0.02) Anion Gap 6.0 mmol/L (3-11) Est Creatinine Clear Calc Drug Dose 97.4 ml/min Estimated GFR () 105.1 Estimated GFR (Non- 90.7 BUN/Creatinine Ratio 18.3 (10-20) Calcium Level 8.6 mg/dl (8.5-10.1) Total Bilirubin 1.3 mg/dl (0.2-1) Direct Bilirubin 0.2 mg/dl (0-0.2) Aspartate Amino Transf (AST/SGOT) 19 U/L (15-37) Alanine Aminotransferase (ALT/SGPT) 34 U/L (12-78) Alkaline Phosphatase 64 U/L (45-117) Total Protein 7.4 gm/dl (6.4-8.2) Albumin 4.3 gm/dl (3.4-5.0) Lipase 150 U/L (73-393) Urine Color YELLOW Urine Appearance CLOUDY (CLEAR) Urine pH 7.5 (4.5-7.5) Urine Specific Gazelle 1.023 (1.000-1.030) Urine Protein NEG (NEG) Urine Glucose (UA) NEG (NEG) Urine Ketones TRACE (NEG) Urine Occult Blood NEG (NEG) Urine Nitrite NEG (NEG) Urine Bilirubin NEG (NEG) Urine Urobilinogen NEG (NEG) Urine Leukocyte Esterase NEG (NEG) Urine WBC (Auto) 0 /hpf (0-5) Urine RBC (Auto) 0-4 /hpf (0-4) Urine Hyaline Casts (Auto) 0 /lpf (0-5) Urine Epithelial Cells (Auto) 0-5 /lpf (0-5) Urine Bacteria (Auto) NEG (NEG) Laboratory results reviewed by me Medications Administered Medications (Trade) Dose Ordered Sig/Tonya Route Start Time Stop Time Status Last Admin Dose Admin Ondansetron HCl (Zofran Inj) 4 mg NOW STAT IV 04/23/17 19:38 04/23/17 19:39 DC 04/23/17 19:47 4 MG Hydromorphone HCl (Dilaudid Inj) 1 mg Q15M PRN IV 04/23/17 19:45 05/07/17 19:44 04/23/17 20:10 1 MG Sodium Chloride 1,000 ml @ 999 mls/hr Q1H1M STAT IV 04/23/17 19:39 04/23/17 20:39 DC 04/23/17 19:47 999 MLS/HR Cefoxitin Sodium (Mefoxin 2000mg/ 60 ml D5W) 2,000 mg NOW STAT IV 04/23/17 21:29 04/23/17 21:30 DC 04/23/17 21:57 2,000 MG ED Course 193: The patient was evaluated in room A11. A complete history and physical exam was performed. 1937: Ordered Zofran 4 mg IV. 1938: Ordered Sodium Chloride 1000 mL @ 999 mL/hr IV. 1344: Ordered Dilaudid 1 mg IV. Medical Decision Prior records/ancillary studies reviewed. Triage Nursing notes reviewed and agree them. Additional history obtained from family. The patient's history was concerning for abdominal pain. Differential diagnosis: Etiologies such as biliary pathology, appendicitis, diverticulitis, PUD, UTI, pancreatitis, obstruction, mesenteric ischemia, aortic pathology, infections, inflammatory bowel disease, renal colic, as well as others were entertained. Physical examination findings: As above. ER treatment provided: IV Zofran IV Dilaudid 2 On reassessment the patient felt better. IV Mefoxin Diagnostics interpreted by me: The labs revealed mild leukocytosis on CBC. Chemistry panel is unremarkable. LFTs revealed a slight elevation of bili function. Alkaline phosphatase and lipase normal. Imaging studies: Ultrasound revealed findings consistent with acute cholecystitis. Chest x-ray unremarkable. Consultation: A consultation was placed with the general surgeon on-call, Dr. Mosher. The case was discussed and diagnostics were reviewed. The patient was evaluated in the ER for further treatment. Impression Primary Impression: RUQ abdominal pain Additional Impression: Cholecystitis Scribe Attestation The scribe's documentation has been prepared under my direction and personally reviewed by me in its entirety. I confirm that the note above accurately reflects all work, treatment, procedures, and medical decision making performed by me. Departure Information Dispostion Being Evaluated By Surgeon Referrals No Doctor, Assigned (PCP) Patient Instructions My [facility] Problem Qualifiers
[2017-04-24] VITALS (13 sets, daily range): BP systolic 109–146; BP diastolic 56–81; PULSE 50–83; TEMP 36.3–37.2; O2SAT 94–99; Ht 177.8 cm; Wt 83.0 kg
[2017-04-24] MEDS: HYDROmorphone INJ 1 MG/ML SYR IV PRN ×3 (00:39→12:23)
[2017-04-24] MEDS: LACTATED RINGER'S 1000ML 1,000 ML IV SCH ×3 (03:38→17:50)
[2017-04-24] MEDS: CEFOXITIN IV 2,000 MG in DEXTROSE 5% 50ML 50 ML IV SCH ×2 (04:28→10:59)
[2017-04-24] MEDS ORDERED: CEFAZOLIN 2000MG IV PUSH 10 ML IV SCH (06:00)
[2017-04-24] MEDS ORDERED: CONRAY 60% 50 ML VIAL ONE (07:56)
[2017-04-24] MEDS ORDERED: CEFAZOLIN SOD 1 GM VIAL ONE (07:56)
[2017-04-24] MEDS ORDERED: BUPIVACAINE 0.5 % 5 MG/1 ML MPF 30ML VIAL ONE (07:56)
[2017-04-24] MEDS ORDERED: PHENYLEPHRINE HCL INJ 10 MG/ML VIAL ONE (08:04)
[2017-04-24] MEDS ORDERED: ONDANSETRON INJ 2 MG/ML 2 ML VIAL ONE (08:04)
[2017-04-24] MEDS ORDERED: MIDAZOLAM HCL 1 MG/ML 2ML VIAL ONE (08:04)
[2017-04-24] MEDS ORDERED: EpHEDrine SULFATE INJ 50 MG/ML AMP ONE (08:04)
[2017-04-24] MEDS ORDERED: FENTANYL CITRATE INJ 50 MCG/1 ML 2 ML VIAL ONE ×2 (08:04→08:05)
[2017-04-24] MEDS ORDERED: NEOSTIGMINE METHYLSULFATE 5 MG/5 ML SYR ONE (08:04)
[2017-04-24] MEDS ORDERED: DEXAMETHASONE SOD INJ 4 MG/ML VIAL ONE (08:04)
[2017-04-24] MEDS ORDERED: LIDOCAINE HCL 2% 2 ML VIAL (20MG/ML) ONE (08:04)
[2017-04-24] MEDS ORDERED: GLYCOPYRROLATE INJ 0.2 MG/ML VIAL ONE (08:04)
[2017-04-24] MEDS ORDERED: PROPOFOL IV EMULSION 10 MG/ML 20 ML VIAL IV ONE ×2 (08:04→09:41)
[2017-04-24] MEDS ORDERED: SUCCINYLCHOLINE CHLORIDE 20 MG/ML 10 ML VIAL IV ONE (08:04)
--- NOTE | 2017-04-24 08:24 | History & Physical Bridge Note ---
H&P Re-Evaluation Bridge Note: I have examined the patient, reviewed the History & Physical and in the interval since the performance of the History & Physical I have noted the following changes of clinical significance: No changes noted
[2017-04-24] MEDS ORDERED: HYDROmorphone INJ 1 MG/ML SYR IV PRN (08:30)
[2017-04-24] MEDS ORDERED: EpHEDrine SULFATE INJ 50 MG/ML AMP IV PRN (08:30)
[2017-04-24] MEDS ORDERED: ATROPINE SULFATE 0.1 MG/ML 5ML SYR IV PRN (08:30)
[2017-04-24] MEDS ORDERED: ONDANSETRON INJ 2 MG/ML 2 ML VIAL IV PRN (08:30)
[2017-04-24] MEDS ORDERED: ROCURONIUM BROMIDE 10 MG/ML 5 ML VIAL IV ONE (08:54)
[2017-04-24] MEDS ORDERED: WATER, STERILE FOR INJ 10 ML VIAL ONE (08:54)
[2017-04-24] MEDS: HEPARIN SOD (PORCINE) 1000 UNIT/ML 10 ML VIAL ONE (09:37)
--- NOTE | 2017-04-24 09:42 | [facility] Post Operative Brief Note ---
Immediate Operative Summary Operative Date Apr 24, 2017. Pre-Operative Diagnosis Acute Cholelithiasis; Acute Cholecystitis Post-Operative Diagnosis Acute Cholelithiasis; Acute Cholecystitis Procedure(s) Performed Laparoscopic Cholecystectomy Surgeon Dr. Chet Zepeda Pressroom Foreman Surgeon(s) Domenica Marsh PA-C Estimated Blood Loss 5ml Findings Consistent with Post-Op Diagnosis Specimens Permanent Solution: A.)Gallbladder and Contents Anesthesia Type General Disposition Disposition: Recovery Room / PACU
--- NOTE | 2017-04-24 10:00 | OPERATIVE REPORT ---
DATE OF OPERATION: 04/24/2017 PREOPERATIVE DIAGNOSES: Acute cholecystitis, cholelithiasis. POSTOPERATIVE DIAGNOSIS: Same. PROCEDURE: Laparoscopic cholecystectomy. SURGEON: Chet Zepeda MD. DIRECTOR OF CLINICAL APPLICATIONS: Domenica Marsh PA-C. FINDINGS: The patient's gallbladder was dilated. It was edematous with a lot of fluid in the surrounding tissue made and in the tissue planes between the gallbladder and the liver. There was no evidence of gangrene of the gallbladder. The cystic duct was narrow. The liver was of normal size and contour and the visible bowel appeared normal. Within the gallbladder, there were small gravel-like stones and sludge. TECHNIQUE: The patient was given a general anesthetic and the area was prepped and draped in the usual sterile fashion. Transverse incision was made below the umbilicus, carried down through the subcutaneous tissue to the fascia which was grasped with 2 Jonah clamps and incised between. The peritoneum was identified, incised, and the introducer was placed bluntly. The abdomen was then insufflated to a pressure of 15 mmHg with carbon dioxide. The upper midline, midclavicular and anterior axillary introducers were placed under direct vision through small skin incisions. Traction was attempted to be placed on the gallbladder but because it was distended, we could not grasp it, so the drainage needle was passed under direct vision and placed into the gallbladder and the gallbladder was drained. We were then able to grasp the gallbladder and elevate it. There were adhesions of the omentum to the body and infundibulum portion of the gallbladder and these were taken down using blunt and cautery dissection where appropriate. Once we got down to the infundibulum and near the neck, the duodenum was also seen to be adhesed. The adhesions of the duodenum were more flimsy and were taken down without the use of cautery. That allowed me to grasp the infundibulum and opened the peritoneum on the lateral side and workup along the lateral aspect of the infundibulum away from the liver allowing better mobilization. I then opened the triangle of Calot and performed a similar dissection on the medial side. That allowed me to identify what appeared to be the cystic artery which was draped over the cystic duct and going up along the anterior surface of the gallbladder. This was isolated near the gallbladder, clamped twice proximally and once near the gallbladder and divided. That allowed me access to the cystic duct. There was a lot of connective tissue, lymphatics and fatty tissue adhesed to the wall of the cystic duct and this was taken down using blunt and cautery dissection where appropriate until I could identify and isolate and skeletonize completely the cystic duct at the level of the junction with the gallbladder. Further dissection of the gallbladder away from the liver on the lateral and medial sides was performed to allow for better mobility and create a window behind the gallbladder and cystic duct junction. I was able to identify that with confidence. Two clips were placed on the proximal cystic duct, one near its junction with the gallbladder and was divided. Further dissection was then carried out posterior to that area. There was a posterior branch of the artery that was encountered. This was isolated, clamped and divided. There were some thickened lymphatics which were also clamped and divided. The gallbladder was then peeled off the liver bed using cautery. It was placed into an Endobag and brought out through the upper midline incision where I had to open the gallbladder on the outside, extract some of the stones and the remainder of the bile in order to extract it within the bag and that was accomplished. That introducer was replaced and liver edge was elevated. The gallbladder bed of the liver was inspected and there was no bleeding. The subdiaphragmatic and subhepatic spaces were irrigated. The irrigation was removed and that was repeated until the return was clear. The gallbladder bed of the liver was again inspected and there was no bleeding. The previously placed clips were inspected and were intact. The gas was allowed to escape and the introducers were removed. The fascia of the umbilical and upper midline introducer sites was closed with interrupted 0 Vicryl and skin of all the incisions was closed with 4-0 Monocryl in either an interrupted or running subcuticular fashion. The skin was anesthetized with 0.5% Marcaine. The skin was cleansed, dried, benzoin placed. Steri-Strips applied. The estimated blood loss was 5 mL. Sponge, needle and instrument counts were correct x2 prior to closure. The patient tolerated the surgical procedure without complication and was transferred to recovery. I attest to the content of the Intraoperative Record and any orders documented therein. Any exception s are noted below.
--- NOTE | 2017-04-24 10:06 | Discharge Instructions ---
Discharge Instructions Date of Service Apr 24, 2017. Admission Reason for Admission: Acute Cholecystitis Discharge Discharge Diagnosis / Problem: same Discharge Goals Goal(s): Decrease discomfort, Improve function Activity Recommendations Activity Limitations: as noted below No heavy lifting over 20 pounds for 2 weeks No strenuous activity until cleared by surgeon No submerging incisions underwater for 2 weeks (no bathing, swimming, or hot tubs) No driving while taking narcotic pain medication or until you are pain free . Instructions / Follow-Up Instructions / Follow-Up You may shower in 24 hours. Remove outer dressings. Leave steri strips on incisions for 7 days and then remove. They may fall off on their own that is okay. Walking and light activity is encouraged to prevent blood clots from forming in your legs. You will be given prescription for narcotic pain medication ( Percocet) as needed for moderate pain. This medication may make you drowsy. If you need something for mild pain you may take Aleve/Advil as needed. If you are taking Percocet do no substitute with Tylenol as Percocet already has Tylenol in it. If you are no longer requiring Percocet you may take Tylenol. Follow up in surgical office in 2 weeks, please call office at [phone] to make an appointment. Current Hospital Diet Patient's current hospital diet: Clear Liquid Diet Discharge Diet Recommended Diet: Regular Diet Procedures Procedures Performed: Laparoscopic Cholecystectomy Pending Studies Studies pending at discharge: yes List of pending studies: gallbladder pathology to be reviewed at follow up visit Medical Emergencies . Who to Call and When: Medical Emergencies: If at any time you feel your situation is an emergency, please call 911 immediately. . Non-Emergent Contact Non-Emergency issues call your: Primary Care Provider, Surgeon Call Non-Emergent contact if: you have a fever, temperature is above 101, your pain is not controlled, your pain is worsening, wound has increased drainage, wound has increased redness, wound has increased pain . "Provider Documentation" section prepared by Domenica Marsh. . VTE Core Measure Inpt VTE Proph given/why not?: SCD's [place] Drug Monitoring Program Search Results: patient reviewed within database, no issues identified
[2017-04-24] MEDS ORDERED: OXYC-57 PO (10:07)
[2017-04-24] MEDS: FENTANYL CITRATE INJ 50 MCG/1 ML 2 ML VIAL IV PRN ×2 (10:12→10:16)
--- NOTE | 2017-04-24 10:35 | Anesthesiology Progress Note ---
Anesthesia Post Op Note Date & Time Apr 24, 2017 at 10:35 Vital Signs Pain Intensity: 0 Vital Signs Past 12 Hours Date Time Temp Pulse Resp B/P (MAP) Pulse Ox O2 Delivery O2 Flow Rate FiO2 04/24/17 10:30 57 15 118/69 99 Oxymask 10 04/24/17 10:20 51 13 118/70 99 Oxymask 10 04/24/17 10:10 54 15 132/87 100 Oxymask 10 04/24/17 10:00 36.4 79 22 133/96 100 Oxymask 10 04/24/17 08:30 Room Air 04/24/17 07:30 36.8 67 16 109/61 (77) 98 Room Air 04/24/17 00:10 37.0 62 18 118/74 99 Room Air 04/24/17 00:10 Room Air 04/24/17 00:05 37.0 62 18 118/74 (89) 99 Room Air 04/23/17 23:46 72 20 135/72 94 04/23/17 22:53 72 20 135/72 94 Room Air Notes Mental Status: alert / awake / arousable, participated in evaluation Pt Amnestic to Procedure: Yes Nausea / Vomiting: adequately controlled Pain: adequately controlled Airway Patency, RR, SpO2: stable & adequate BP & HR: stable & adequate Hydration State: stable & adequate Anesthetic Complications: no major complications apparent
[2017-04-24] MEDS ORDERED: COUGH DROP (SUGAR FREE) LOZ 24 LOZ/1 BOX LOZ ONE (11:58)
[2017-04-24] MEDS: MoRPHine SULFATE 2 MG/ML CARP IV PRN ×2 (11:59→17:49)
[2017-04-24] MEDS ORDERED: NURSING VERBAL MED ORDER ONE (12:15)
[2017-04-24] MEDS ORDERED: COUGH DROP (SUGAR FREE) LOZ 24 LOZ/1 BOX LOZ PRN (12:15)
[2017-04-24] MEDS ORDERED: HYDROmorphone INJ 0.5 MG/0.5 ML SYR IV PRN ×2 (14:45)
[2017-04-24] MEDS: OXYCODONE/ACETAMINOPHEN 5-325 TAB PO PRN ×3 (15:32→21:30)
[2017-04-25] MEDS: LACTATED RINGER'S 1000ML 1,000 ML IV SCH ×2 (02:00→10:05)
[2017-04-25 03:50] VITALS: BP 104/54; PULSE 68; TEMP 37.1; O2SAT 96
[2017-04-25] MEDS: OXYCODONE/ACETAMINOPHEN 5-325 TAB PO PRN (05:55)
[2017-04-25 07:30] VITALS: BP 128/72; PULSE 67; TEMP 37.2; O2SAT 95
--- NOTE | 2017-04-25 07:43 | Surgery Progress Note ---
Surgery Progress Note Date of Service Apr 25, 2017. Subjective Post OP Day: 1 + complaints (Reports his belly feels hard and he has still been in some pain. ) , + diet (Tolerating clears), No bowel movement, No flatus, No nausea, No vomiting Patient laying in bed with at bedside. Reports increased pain overnight. Objective Vital Signs: Date Time Temp Pulse Resp B/P (MAP) Pulse Ox O2 Delivery O2 Flow Rate FiO2 04/25/17 03:50 37.1 68 16 104/54 (71) 96 Room Air 04/24/17 23:10 36.8 59 16 111/60 (77) 95 Room Air 04/24/17 23:10 Room Air 04/24/17 19:22 36.3 62 16 135/81 (99) 96 Room Air 04/24/17 15:33 Room Air 10.0 04/24/17 15:13 36.9 63 16 137/72 (93) 98 Room Air 04/24/17 13:55 50 16 146/56 (86) 96 04/24/17 12:49 81 16 133/69 (90) 94 04/24/17 12:00 65 16 133/79 (97) 97 04/24/17 11:20 72 16 128/78 (95) 97 04/24/17 11:13 97 Room Air 04/24/17 11:12 97 Room Air 04/24/17 10:55 37.2 83 16 137/67 (90) 97 Room Air 04/24/17 10:40 37.0 61 20 118/70 95 Room Air 04/24/17 10:30 57 15 118/69 99 Oxymask 10 04/24/17 10:20 51 13 118/70 99 Oxymask 10 04/24/17 10:10 54 15 132/87 100 Oxymask 10 04/24/17 10:00 36.4 79 22 133/96 100 Oxymask 10 04/24/17 08:30 Room Air General Appearance: WD/WN, no apparent distress Head: normocephalic, atraumatic Respiratory/Chest: no respiratory distress, no accessory muscle use Abdomen: normal bowel sounds, no organomegaly, + distended (Moderate), + guarding, + tenderness Incision(s): clean, dry, intact, no erythema, no drainage Assessment & Plan POD #1 s/p laparoscopic cholecystectomy Covering for [facility]. Still in some pain, improving with dilaudid. No N/V, No flatus or BM yet. Tolerating clear liquids, feels hungry - will hold on advancing diet for now due to increased distention. Continue pain medication PRN - try to encourage PO meds first but dilaudid is okay if necessary. Continue zofran PRN for nausea. Will continue to follow - d/c unlikely today unless he shows significant improvement in abdominal pain. Findings discussed with Dr. Belle. Please contact with questions or concerns.
[2017-04-25] MEDS ORDERED: KETOROLAC TROMETHAMINE 30 MG/ML VIAL IV PRN (08:45)
[2017-04-25] MEDS: TRAMADOL HCL 50 MG TAB PO PRN ×6 (08:59→14:14)
[2017-04-25] MEDS ORDERED: KETOROLAC TROMETHAMINE 10 MG TAB PO PRN (09:00)
[2017-04-25] MEDS ORDERED: TRAM-453 PO (12:57)
[2017-04-25] MEDS ORDERED: KETO10TA PO (12:57)
[2017-04-25 15:07] VITALS: BP 116/71; PULSE 60; TEMP 37.2; O2SAT 96
[2017-04-25 15:21] VITALS: BP 116/71; PULSE 60; TEMP 37.2; O2SAT 96
--- NOTE | 2017-04-27 08:18 | Discharge Summary ---
Discharge Summary Dates Admission Date / Time: Apr 23, 2017 at 22:21 Discharge Date: Apr 25, 2017 Dispostion / Condition Discharge Disposition: Home Condition at Discharge: Good Principal Diagnosis (1) Epigastric abdominal pain (2) Acute cholecystitis Problem List (1) No significant active problems Consultations / Procedures Procedures: Laparoscopic cholecystectomy Pending Studies / Follow-Up Gallbladder pathology- to be reviewed at follow up visit Medication Reconciliation New Medications: Ketorolac Tromethamine (Toradol) 10 Mg Tab 10 MG PO Q4 for Pain for 3 Days, #18 TAB Oxycodone/Acetaminophen 5MG/325MG (Percocet 5MG/325MG) Tab 1 TABLET PO Q4H PRN for Pain, #18 TAB Tramadol Hcl (Ultram) 50 Mg Tab 50 MG PO Q4H for Pain for 3 Days, #18 TAB PRN PAIN Continued Medications: Bismuth Subsalicylate (Pepto Bismol Chew Tab) 262 Mg Tab 262 MG PO UD PRN for GI Upset, TAB TAKE PER PACKAGE DIRECTIONS Simethicone (Gas-X) 80 Mg Chw 80 MG PO UD PRN for Gas or Constipation TAKE PER PACKAGE DIRECTIONS Admission HPI Per the Admitting provider: The patient is a 41 year old male who presents to the Emergency Room with complaints of worsening upper abdominal pain that began this afternoon. The pain radiates to his back and he has been nauseated. He had a similar episode in July of 2016 when he was diagnosed with epigastric abdominal pain. The patient denies LOC, headache, fevers, chills, diaphoresis, visual changes, neck pain, chest pain, breathing difficulties, vomiting, melena, hematochezia, urinary symptoms, numbness, weakness, lymphadenopathy, rash, or other complaints. An ultrasound shows stones and signs of acute cholecystitis. Admission Exam Per the Admitting provider: General Appearance: WD/WN, no apparent distress Head: normocephalic, atraumatic Eyes: normal inspection, PERRL, EOMI, sclerae normal ENT: normal ENT inspection Neck: supple, no adenopathy, trachea midline Respiratory/Chest: chest non-tender, lungs clear Cardiovascular: regular rate, rhythm, no edema, no gallop, no murmur Abdomen/GI: normal bowel sounds, soft, no pulsatile mass, + tenderness Genitourinary - Male: normal male genitalia Back: no CVA tenderness, normal range of motion Extremities/Musculoskelatal: normal inspection, no calf tenderness, non- tender Neurologic/Psych: no motor/sensory deficits, alert, normal mood/affect, oriented x 3 Skin: normal color, warm/dry, no rash Lymphatic: no adenopathy Hospital Course (1) Acute cholecystitis Patient was admitted to medical/surgical floor from the emergency department by Dr. Mosher. Was started on IV fluids, IV pain medication as needed, IV Zofran , IV antibiotics (Cefoxitin 2 gms IV q 6 hours), NPO, activity as tolerated, and SCDs. Patient was then taken to operating room in the morning by Dr. Zepeda. Patient found to have acute cholecystitis. Patient tolerated procedure well without any difficulties. Patient transferred to recovery room in stable condition and then back to medical/surgical floor for post operative care. His diet was advanced to clear liquids. IV Dilaudid was ordered as IV Percocet did not control pain. He was evaluated in the afternoon on operative day and was having moderate abdominal pain and shoulder pain. IV Dilaudid helping. Tolerated clear liquids. Advised patient he would need to have pain controlled with oral pain medication in order to get him home. He was kept overnight for observation. Patient was evaluated in the morning on POD # 1 and was having moderate pain, still on IV pain medication with increased distention. Tolerated clears without nausea or vomiting. No bowel function yet. Toradol and Ultram were ordered as needed for pain. Advised PO Percocet ( 2 tabs) as needed for pain instead of IV Dilaudid. Ambulating halls and urinating without difficulty. Patient's pain was controlled and was discharged home later in the evening on POD # 1 in stable condition. Discharge Instructions as given to patient Copies To Primary Care Provider: Seferino Rowell MD.
== END 2017-04-25 15:59 | disposition home or self-care (01) | DRG 419 ==
LOC: C.EDB 18:16 → C.3E 22:21 → EDBEDREQ 22:23 → ENRESERV 23:20 → UNDODEPER 04-24 12:09
PROVIDERS: ADMIT Surgery; ATTEND Surgery
PROC: 0FT44ZZ Resection of Gallbladder, Percutaneous Endoscopic Approach (ICD-10-PCS; principal; 2017-04-24 11:00)
DX: K80.00 Calculus of gallbladder with acute cholecystitis without obstruction (principal)